=== PATIENT | male | born 1995 | race Caucasian/White ===

== ENCOUNTER → 2020-04-06 14:52 | Outpatient (CLI) | payer OTHER, SELFPAY ==
[2020-04-06 14:28] VITALS: BMI 30.6
[2020-04-06 17:19] LABS: Absolute Lymphocyte Count 1.97 X10^3/uL (0.83-4.51); Absolute Neutrophil Count 6.1 X10^3/uL (2.0-7.7); Basophil# 0.05 X10^3/uL; Basophil% 0.6 % (0-1); Eosinophil# 0.12 X10^3/uL; Eosinophils% 1.4 % (0-5); Lymphocyte # 1.97 X10^3/ul (4.0); Lymphocyte % 22.4 % (19-41); Mean Corp Hgb Conc 33.3 g/dL (32-36); Mean Corpuscular Hgb 29.6 pg (27.0-32.0); Mean Corpuscular Volume 88.9 fL (80-94); Monocyte# 0.55 X10^3/uL; Monocyte% 6.3 % (0-10); NRBC Flagged by Analyzer 0 % (0-5); Neutrophil # 6.09 X10^3/uL (2.7-7.7); Neutrophil % 69.1 % (47-70); Platelet Count 265 K/mm3 (150-450); RBC Distribution Width SD 42.2 fl (35.1-43.9); Red Blood Count 5.06 M/mm3 (4.6-6.2); White Blood Count 8.8 K/mm3 (4.4-11.0)
[2020-04-06 17:31] LABS: ALB/GLOB Ratio 1.1 RATIO (0.9-2.4); AST(SGOT) 22 U/L (15-37); Alanine Aminotransfer ALT/SGPT 35 U/L (16-61); Albumin, Serum 4.3 g/dL (3.2-5.0); Alkaline Phosphatase 62 U/L (45-117); Anion Gap 4 (5-15); BUN 19 mg/dL (7-18); Calcium,Total 8.9 mg/dL (8.5-10.1); Chloride 105 mmol/L (98-107); Cholesterol 196 mg/dL (200); Creatinine, Serum 0.95 mg/dL (0.70-1.30); EST Glomerular Filtration Rate 102 mL/min (>60); Est Glom Filt Rate - Afr Amer 123 mL/min (>60); Globulin 3.9 g/dL (2.2-4.2); Glucose 82 mg/dL (74-106); High Density Lipoprotein 60 mg/dL; Protein, Total 8.2 g/dL (6.4-8.2); Sodium Level 138 mmol/L (136-145); Triglycerides 133 mg/dL; Very Low Density Lipoprotein 27 mg/dL (5-40)
== END ==
PROVIDERS: PCP Internal Medicine; Referring Provider Internal Medicine; Visit Provider Internal Medicine
DX: Z00.00 Encounter for general adult medical examination without abnormal findings (principal)
CPT/HCPCS: 36415; 80053; 80061; 85025

== ENCOUNTER → 2021-04-16 10:57 | Outpatient (CLI) | payer OTHER, SELFPAY ==
[2021-04-16 12:31] LABS: Absolute Lymphocyte Count 2.25 X10^3/uL (0.83-4.51); Absolute Neutrophil Count 3.2 X10^3/uL (2.0-7.7); Basophil# 0.05 X10^3/uL; Basophil% 0.8 % (0-1); Eosinophil# 0.14 X10^3/uL; Eosinophils% 2.3 % (0-5); Hematocrit 44.9 % (40-54); Hemoglobin 15.1 g/dL (13.0-16.5); Lymphocyte # 2.25 X10^3/ul (0.83-4.51); Lymphocyte % 36.2 % (19-41); Mean Corp Hgb Conc 33.6 g/dL (32-36); Mean Corpuscular Volume 89.1 fL (80-94); Mean Platelet Vol. 10.5 fl (6.2-12.0); Monocyte# 0.56 X10^3/uL; NRBC Flagged by Analyzer 0 % (0-5); Neutrophil # 3.19 X10^3/uL (2.7-7.7); Neutrophil % 51.4 % (47-70); Platelet Count 268 K/mm3 (150-450); RBC Distribution Width CV 13.2 % (11.6-14.6); RBC Distribution Width SD 43.1 fl (35.1-43.9); Red Blood Count 5.04 M/mm3 (4.6-6.2); White Blood Count 6.2 K/mm3 (4.4-11.0)
[2021-04-16 12:53] LABS: ALB/GLOB Ratio 1.1 RATIO (0.9-2.4); AST(SGOT) 15 U/L (15-37); Alanine Aminotransfer ALT/SGPT 20 U/L (16-61); Albumin, Serum 4.2 g/dL (3.2-5.0); Alkaline Phosphatase 54 U/L (45-117); Anion Gap 8 (5-15); BUN 11 mg/dL (7-18); BUN/Creat Ratio 11.8 RATIO (10-20); Calcium,Total 9.1 mg/dL (8.5-10.1); Chloride 101 mmol/L (98-107); Cholesterol 165 mg/dL (200); Creatinine, Serum 0.93 mg/dL (0.70-1.30); EST Glomerular Filtration Rate 104 mL/min (>60); Est Glom Filt Rate - Afr Amer 125 mL/min (>60); Globulin 3.7 g/dL (2.2-4.2); Glucose 96 mg/dL (74-106); High Density Lipoprotein 63 mg/dL; Potassium 4.2 mmol/L (3.5-5.1); Protein, Total 7.9 g/dL (6.4-8.2); Sodium Level 137 mmol/L (136-145); Thyroid Stim Hormone (TSH) 2.76 uIU/mL (0.358-3.74); Triglycerides 65 mg/dL; Very Low Density Lipoprotein 13 mg/dL (5-40)
== END ==
PROVIDERS: PCP Internal Medicine; Referring Provider Nurse Practitioner Family; Visit Provider Nurse Practitioner Family
DX: Z00.00 Encounter for general adult medical examination without abnormal findings (principal)
CPT/HCPCS: 36415; 80053; 80061; 84443; 85025

== ENCOUNTER → 2022-10-13 | Outpatient (CLI) | payer OTHER, SELFPAY ==
[2022-10-13 12:13] LABS: Absolute Lymphocyte Count 1.61 X10^3/uL (0.83-4.51); Basophil# 0.04 X10^3/uL; Basophil% 0.6 % (0-1); Eosinophil# 0.25 X10^3/uL; Eosinophils% 3.7 % (0-5); Hematocrit 45.2 % (40-54); Hemoglobin 15.3 g/dL (13.0-16.5); Lymphocyte # 1.61 X10^3/ul (0.83-4.51); Lymphocyte % 24.1 % (19-41); Mean Corp Hgb Conc 33.8 g/dL (32-36); Mean Corpuscular Volume 88.6 fL (80-94); Mean Platelet Vol. 10.7 fl (6.2-12.0); Monocyte# 0.82 X10^3/uL; Monocyte% 12.3 % (0-10); NRBC Flagged by Analyzer 0 % (0-5); Neutrophil # 3.95 X10^3/uL (2.7-7.7); Neutrophil % 59.2 % (47-70); Platelet Count 242 K/mm3 (150-450); RBC Distribution Width SD 42.5 fl (35.1-43.9); White Blood Count 6.7 K/mm3 (4.4-11.0)
[2022-10-13 12:30] LABS: ALB/GLOB Ratio 1.3 RATIO (0.9-2.4); AST(SGOT) 21 U/L (15-37); Alanine Aminotransfer ALT/SGPT 28 U/L (16-61); Albumin, Serum 4.2 g/dL (3.2-5.0); Alkaline Phosphatase 56 U/L (45-117); Anion Gap 4 (5-15); BUN 11 mg/dL (7-18); BUN/Creat Ratio 12.8 RATIO (10-20); Chloride 104 mmol/L (98-107); Cholesterol 167 mg/dL (200); Creatinine, Serum 0.86 mg/dL (0.70-1.30); EST Glomerular Filtration Rate 112 mL/min (>60); Est Glom Filt Rate - Afr Amer 135 mL/min (>60); Globulin 3.3 g/dL (2.2-4.2); Glucose 98 mg/dL (74-106); High Density Lipoprotein 52 mg/dL; Potassium 4.4 mmol/L (3.5-5.1); Protein, Total 7.5 g/dL (6.4-8.2); Sodium Level 136 mmol/L (136-145); Triglycerides 62 mg/dL; Very Low Density Lipoprotein 12 mg/dL (5-40)
== END | disposition home or self-care (01) ==
LOC: BIMLAB 10:42
PROVIDERS: PCP Internal Medicine; Visit Provider Internal Medicine
DX: Z00.00 Encounter for general adult medical examination without abnormal findings (principal)
CPT/HCPCS: 36415; 80053; 80061; 85025

== ENCOUNTER → 2023-01-06 | Outpatient (CLI) | payer OTHER, SELFPAY | END | disposition home or self-care (01) | LOC: LABSPEC 17:20 | PROVIDERS: PCP Internal Medicine; Referring Provider Surgery; Visit Provider Surgery | DX: K40.90 Unilateral inguinal hernia, without obstruction or gangrene, not specified as recurrent (principal) | CPT/HCPCS: 87081 ==

== ENCOUNTER 2023-01-19 09:31 | Day surgery (SDC) | payer OTHER, SELFPAY ==
[2023-01-19] VITALS (8 sets, daily range): BP systolic 121–137; BP diastolic 59–79; PULSE 76–111; RESP 16; TEMP 36.4–37.1; O2SAT 93–100
[2023-01-19] MEDS: Lactated Ringers 1,000 ML 15 ML IV (10:23)
--- NOTE | 2023-01-19 10:26 | PCM.HP.BLA ---
History and Physical Date of Admission: 01/19/23 Date of Service: 01/06/23 MR#: [id number] Acct: [id number] Name: DEO PRADO Rep #: [id number] : 1995 Provider: Dr. Amaury Romano MD Age/Sex: 27/M Location: [facility] Status: Signed Intake Vital Signs 10/25/2307:31 01/06/2315:56 Height 6 ft 6 ft Weight: 239 lb 4 oz 231 lb BMI 32.4 31.3 BP 121/78 H 134/77 H Blood Pressure Location Lt brachial Rt brachial Position Sitting Sitting Respiration 17 18 Pulse 78 80 Pulse Source Monitor Monitor Temp 97.3 F L 98.1 F Temp Source Temporal Tympanic Pulse Oximetry (%) 96 98 Oxygen Delivery Method room air Intake Visit Reasons: Update H&P Chief Complaint: update h&p Allergies azithromycin [From Zithromax] Adverse Reaction (Unknown, Verified 01/06/23 15:57) unknown Medications NK 03/09/20 [History Confirmed 01/06/23] [facility] Medical History Alcohol use Encounter for preventative adult health care examination Injury of back Non-smoker Right groin hernia Wears glasses Surgical History Pilonidal abscess Family History Other Cancer Social History Smoking Status: Never smoker alcohol intake: current alcohol intake frequency: holidays/special occasions only substance use type: does not use HPI HPI HPI: Patient is a 27-year-old male who is known to me from a prior surgical consultation regarding a right inguinal hernia. When he was last seen for this visit on 10/24/2022 he expressed an interest in undergoing a surgical repair sometime in April 2023, however, he reports after further discussions with his they decided it would be best if he did the hernia repair sooner. She is now 25 weeks and he is looking to have the hernia done before their next child arrives. He denies any health updates, but comes with a number of questions regarding postoperative expectations and limitations. He confirms that he has secured FMLA for the operation and confirmed light duty is available through work once he returns. Below is recapitulated from patient's initial consultation visit for his review: Patient is a 27-year-old male who presents for complaint of a right inguinal hernia. He is referred for surgical consultation from Dr. Dodge. This finding was first noticed by patient approximately 5 years ago. Patient is not able to recall how this occurred, but reports that he was living in [facility] at the time and was working for [employer] doing some heavy lifting so he suspects this may have been the cause. He states since this was first observed he has obtained a hernia truss and wears this regularly. He comments that he has observed some growth from its first observation until today, but that the growth rate has not been dramatic. He does confirm bulging?periodically after lifting or using the bathroom and recognizes some discomfort at these times. He denies ever requiring emergent medical attention for increased pain or the area becoming stuck. He denies any symptoms of unexplained nausea/vomiting or obstipation. Patient has no personal history of smoking. Patient has no personal history of recurrent cutaneous infections including staph. Pertinent surgical history includes: Noncontributory Patient denies a history of prematurity. Patient states that they have met their deductible because his is now and it is due to this insurance reason that he is seeking operative repair later this year. 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 ROS General General: No weight change, appetite, fatigue, colon cancer, breast cancer or weakness HEENT HEENT: No difficulty swallowing, eye injury, eye surgery, swollen glands or hoarseness Endo Endocrine: No thyroid disease, diabetes mellitus, thyroid cancer, Hair loss, heat intolerance or cold intolerance Skin Skin: No rash or changing moles Breast Breast: No left breast lump, right breast lump, nipple discharge, breast pain, abnormal mammogram, abnormal US or breast enlargement Musc Musculoskeletal: Yes back problems; No arthritis, rheumatoid arthritis, gout or joint pain Cardio Cardiovascular: No murmur, pacemaker, heart disease, atrial fibrillation, high blood pressure, heart attack, heart stent, palpitations, shortness of breat with exertion or chest pain Psych Psychiatric: No depression, anxiety or hearing voices Resp Respiratory: No shortness of breath, No sleep apnea, No cough, No COPD, No asthma, No emphysema and No wheezing Gastro Gastrointestinal: No abdominal pain, No nausea or vomiting, No diarrhea, No constipation, No blood in stool, No acid reflux, No hemorrhoids, No ulcers, No gallbladder problem and No black,tarry stools Jose Hematologic: No blood thinners, No blood disorders, No bleeding, No anemia and No blood clots Neuro Neurologic: No system reviewed and no additional complaints, except as documented, No as per HPI, No abnormal gait, No abnormal hearing, No abnormal movements, No abnormal speech, No behavioral changes, No burning sensations, No confusion, No convulsions, No disequilibrium, No dizziness, No localized weakness, No frequent falls, No headache(s), No lack of coordination, No loss of vision, No memory loss, No numbness, No other visual disturbances, No radicular pain, No restless legs, No sensory deficit, No syncope, No tingling, No tremor(s), No weakness and No other Exam Const General: cooperative, healthy appearing, comfortable and no acute distress Resp Effort & Inspection: normal respiratory effort GI Inspection: normal to inspection, non-distended and no scars Other: Patient hernia truss present. No bulge palpable in the supine position. Standing exam deferred given prior exam confirming diagnosis. Assessment and Plan Assessment and Plan (1) Right groin hernia: Status: Chronic Comment: This is a 27-year-old male who presents for update H&P following a surgical consultation 10/24/2022 related to a right inguinal hernia which has been present for at least the last 5 years. Patient is minimally symptomatic from this hernia which appears to be a direct defect by prior exam. Today we confirm that there have been no new health updates and reviewed postoperative expectations. Patient denies any further questions and has made preparations through work to adhere to postoperative lifting restrictions. Plan: Outpatient robot-assisted right inguinal hernia repair with mesh Orders: I have examined the patient and the H&P has been reviewed. There are no clinical changes since date of exam. Patient denies any health issues. He denies any questions related to the procedure. Post procedure expectations were reviewed including lifting restrictions. We will proceed to the operating room this morning for scheduled robot-assisted right inguinal hernia repair with mesh.
[2023-01-19] MEDS: Cefazolin 2 GM in 0.9% Normal Saline 100 ML IV (10:56)
[2023-01-19] MEDS: Bupivacaine Mpf 0.5% 30 ML VIAL (11:25)
--- NOTE | 2023-01-19 15:23 | PCM.OPRPT ---
Report of Operation Date of Procedure: 01/19/23 Pre-Operative Diagnosis: Right inguinal hernia Post-Operative Diagnosis: Bilateral indirect inguinal hernias Surgery/Procedure Performed:: Robot-assisted repair of right and left indirect inguinal hernia defects with mesh Surgeon: Amaury Romano shade cloth finisher: Tony Robb shade cloth finisher: Karlee Tenorio Type of Anesthesia: General/Supplemental Special Medications: 0.5% bupivacaine Specimen's removed: N/A Drains: N/A Estimated Blood Loss (mL): 15 Description of Procedure: After appropriate identification the preoperative holding area the patient was brought to the operating room where he was positioned supine on the operating table. Preoperative antibiotics were completed and the patient was administered a general anesthetic. Patient's abdomen was then prepped and draped in usual sterile fashion. Formal timeout followed to confirm patient and procedure. Procedure was begun with an optical entry facilitated by Veress insufflation at Au's point. However, despite a normal water drop test I continued with high pressures on her insufflator so I converted to a Stewart cutdown via a right paramedian approach in the right upper abdominal quadrant. The rectus fibers were bluntly spread and the posterior rectus sheath and peritoneum were sharply opened. A finger sweep confirmed peritoneal entry and our balloon Stewart trocar was placed. Once pneumoperitoneum reached a set point pressure of 12 mmHg. Laparoscopic investigation revealed no inadvertent injury to the viscera below and it did not appear that there was any violation of the peritoneum from the Veress needle in the left upper quadrant. A second port was placed a hand's breath right of this index port under laparoscopic visualization. Then the third and final robotic port was placed through the left upper quadrant at Au's point under laparoscopic visualization. Patient was positioned in slight Trendelenburg and I visualized both right and left indirect inguinal hernia defects. On noting this finding, I recognize that the patient's consent covered repair for a right inguinal hernia defect so an intraoperative phone call was made by nursing to patient's spouse. She gave her full support for proceeding with the bilateral repair and the consent was addended to reflect this change. I then performed a local block of the ilioinguinal nerves using 10 mL local anesthetic under laparoscopic visualizaiton. The robot was docked in standard fashion. Robotically, a peritoneal flap was created on the right extending from the medial umbilical ligament to the level of the ASIS (external) and was bluntly dissected to expose the medial parietal compartment and lateral visceral compartments. Medially I could visualize the pubic tubercle and Junior's ligament while laterally I extended the dissection down to the level of the psoas muscle. The hernia sac was identified and from the cord structures deeply with selective use of monopolar energy. This indirect hernia sac was rather densely adherent to the underlying spermatic cord and extended down to the level of the right testis. Ultimately I was able to separate the sac through a areolar window between it and the spermatic cord structures. Investigation was made lateral to the sac and spermatic cord, but no cord lipoma was identified. Beyond this medially, I did not visualize a direct, femoral, or obturator defect. The peritoneal flap was inspected to ensure that cord was appropriately parietalized and there was no pulling of the cord structures or the viscera deeply over the psoas using the pull test. Then attention was turned to the patient's left side where there was evidence of another indirect hernia defect. Again, a peritoneal flap was created on this side and dissection was carried down in similar fashion to Junior's ligament medially and laterally over the psoas at the same depth. Here the obvious indirect hernia defect extended only into the internal ring and no further. Manual traction was applied to the hernia sac and selective electrocautery was used to separate it from the cord structures inferiorly. While the sac was rather easily reduced, an inadvertent rent was made in the peritoneum and thus I dissected the remainder of the peritoneum off the deeper structures taking great care to avoid injury to the spermatic cord and femoral cutaneous nerves. Again I performed the pull test to ensure that there was no tenting of structures that might compromise the future mesh lie. Once satisfied, a Bard 3D max, size large, mid weight mesh was placed into the abdomen along with suture. It was positioned within the right preperitoneal pocket so that there was good medial and inferior overlap. It was then tacked to the admuniculum of the linea alba just superior to the pubic tubercle and laterally in a partial-thickness bite of the abdominal wall using a 3-0 Vicryl suture. The peritoneal flap was then closed with a running 3-0 V-Loc suture taking care to conceal the barbs of the suture beneath the peritoneum. As this closure proceeded. Once the flap closure was complete, I undertook repair of a small peritoneal defect with 3-0 Vicryl. I then transitioned to the left side and obtained a second large, mid weight 3D max mesh. Mesh was positioned into the preperitoneal space and tacked in similar fashion as had been done on the right side using 3-0 Vicryl. There were several peritoneal defects here as well that required closure with Vicryl. With the peritoneal defects closed, sutures were systematically removed from the peritoneum and the pneumoperitoneum was evacuated before removing the trocars. The Stewart port site was closed directly with an 0 Vicryl suture using a [id number] technique. The port sites were closed at the skin with running 4-0 Monocryl in a subcuticular fashion. Steri-Strips and OpSite's were used as dressings. Patient's testicles confirmed within the scrotum. Patient was then awoken from anesthetic and transferred to PACU for ongoing recovery. Grafts/Implants Used: R:3DMax MID lot [id number], ref [id number]/L:3DMax MID lot [id number], ref [id number] Complications None Admit VTE Documentation VTE Mechan Device Prophylaxis: SCD's
--- NOTE | 2023-01-19 15:25 | DCINST_ITS ---
Discharge Instructions Diet Discharge Diet: No restrictions Activity Discharge Activity: May Not Drive (While taking narcotic pain medication) and May Shower May shower in (days): 2 Ice area for (Minutes): 20 Lifting Restrictions: No lifting greater than 10 pounds for the next 5 weeks Dressing / Incision Call your doctor if your incision/area has: Continuous Slow Oozing, Increased Pain/ Swelling, Increased Redness, Foul Smelling Discharge and Swelling at the incision site Call your doctor if you observe: Fever of 101 or Higher, Inability to urinate and Inability to have a bowel movement Change Dressing in: 2 days (Please leave Steri-Strips intact until they fall off spontaneously or are taken off at your follow-up visit) Remove Dressing in: 2 days Cleanse incision/area with: Soap & Water and Keep Dressing Clean & Dry Follow Up Care Please Follow Up With: Amaury Romano MD When: 1 week postop Test Results: Test results from this visit will be discussed in further detail at your follow- up appointment, if applicable. Discharge Plan Admission Primary Reason for Your Visit: bilateral inguinal hernias Attending Provider: Amaury Romano Primary Care Provider: Rick Dodge Discharge Orders/Prescriptions Prescriptions: New oxycodone 5 mg tablet 5 mg PO Q6H PRN (Reason: pain) 3 Days Qty: 10 0RF Referrals / Follow Up: Rick Dodge MD [Primary Care Provider] - Disposition Disposition (needs filled in before D/C Order can be placed): Home, Self Care
--- NOTE | 2023-01-19 18:54 | SUR.PHASEII ---
dr tinoco called in to check on pt. given update- no new orders at this time.
--- NOTE | 2023-01-19 19:47 | SUR.PHASEII ---
dr tinoco given update on pt's progress and d/c
== END 2023-01-19 19:48 | disposition home or self-care (01) ==
LOC: SDC 09:32 → AC 09:35
PROVIDERS: PCP Internal Medicine; Referring Provider Surgery; Visit Provider Surgery
PROC: (CPT 49650; principal; 2023-01-19 11:10)
DX: K40.20 Bilateral inguinal hernia, without obstruction or gangrene, not specified as recurrent (principal)
CPT/HCPCS: 49650; S2900; 00840; J7120; J2405

== ENCOUNTER → 2024-04-28 | Outpatient (CLI) | payer OTHER, SELFPAY ==
[2024-04-28 16:39] LABS: Absolute Lymphocyte Count 2.42 X10^3/uL (0.83-4.51); Absolute Neutrophil Count 2.8 X10^3/uL (2.0-7.7); Basophil# 0.04 X10^3/uL; Basophil% 0.7 % (0-1); Eosinophil# 0.05 X10^3/uL; Eosinophils% 0.9 % (0-5); Hematocrit 42.4 % (40-54); Hemoglobin 14.2 g/dL (13.0-16.5); Lymphocyte # 2.42 X10^3/ul (0.83-4.51); Lymphocyte % 42.1 % (19-41); Mean Corp Hgb Conc 33.5 g/dL (32-36); Mean Corpuscular Hgb 29.5 pg (27.0-32.0); Mean Corpuscular Volume 88.1 fL (80-94); Mean Platelet Vol. 10.3 fl (6.2-12.0); Monocyte# 0.45 X10^3/uL; Monocyte% 7.8 % (0-10); NRBC Flagged by Analyzer 0 % (0-5); Neutrophil # 2.77 X10^3/uL (2.7-7.7); Neutrophil % 48.2 % (47-70); Platelet Count 269 K/mm3 (150-450); RBC Distribution Width SD 42.1 fl (35.1-43.9); Red Blood Count 4.81 M/mm3 (4.6-6.2); White Blood Count 5.8 K/mm3 (4.4-11.0)
[2024-04-28 16:53] LABS: ALB/GLOB Ratio 1.2 RATIO (0.9-2.4); AST(SGOT) 16 U/L (15-37); Alanine Aminotransfer ALT/SGPT 21 U/L (16-61); Albumin, Serum 4.2 g/dL (3.2-5.0); Alkaline Phosphatase 45 U/L (45-117); Anion Gap 5 (5-15); BUN 10 mg/dL (7-18); BUN/Creat Ratio 10.7 RATIO (10-20); Calcium,Total 9.6 mg/dL (8.5-10.1); Chloride 105 mmol/L (98-107); Cholesterol 187 mg/dL (200); Creatinine, Serum 0.93 mg/dL (0.70-1.30); EST Glomerular Filtration Rate 101 mL/min (>60); Est Glom Filt Rate - Afr Amer 122 mL/min (>60); Globulin 3.5 g/dL (2.2-4.2); Glucose 84 mg/dL (74-106); High Density Lipoprotein 74 mg/dL; Potassium 3.8 mmol/L (3.5-5.1); Protein, Total 7.7 g/dL (6.4-8.2); Sodium Level 138 mmol/L (136-145); Triglycerides 44 mg/dL; Very Low Density Lipoprotein 9 mg/dL (5-40)
== END | disposition home or self-care (01) ==
LOC: BIMLAB 15:15
PROVIDERS: PCP Internal Medicine; Referring Provider Internal Medicine; Visit Provider Internal Medicine
DX: Z00.00 Encounter for general adult medical examination without abnormal findings (principal)
CPT/HCPCS: 36415; 80053; 80061; 85025